=== PATIENT | female | born 1965 | race Caucasian/White ===

== ENCOUNTER 2016-04-10 21:26 | Emergency (ER) | payer BC ==
[2016-04-10 22:24] VITALS: BP 116/72
--- NOTE | 2016-04-10 23:50 | UC ---
Knee Pain HPI - HPI Summary HPI Summary: hit during [employer] practice, went down and right knee twisted. Pain over LCL. No swelling. Able to walk comfortably, but has a sense that knee might give out. She was putting away groceries tonight after injury, twisted, and knee "gave out". Prior knee sprain last year, thought it had fully healed - History of Current Complaint Chief Complaint: UCLowerExtremity Stated Complaint: RIGHT KNEE INJURY Time Seen by Provider: 04/10/16 22:33 Hx Obtained From: Patient Hx Last Menstrual Period: HAS A IUD, DOES NOT HAVE REG PERIODS Onset/Duration: Sudden Onset, Lasting Hours - 8 Severity Initially: Moderate Severity Currently: Mild Character: Dull, Aching, Stiffness Aggravating Factor(s): Movement, Weight Bearing, Stairs Associated Signs And Symptoms: Positive: Negative Able to Bear Weight: Yes Related History: Similar Episode/Dx as - sprain - Risk Factors Septic Arthritis Risk Factor: Negative Gout Risk Factor: Negative - Allergies/Home Medications Allergies/Adverse Reactions: Allergies Allergy/AdvReac Type Severity Reaction Status Date / Time No Known Allergies Allergy Verified 04/10/16 22:16 Home Medications: Home Medications Levonorgestrel (IUD) (NF) [Mirena (NF)] 20 mcg IU 04/10/16 [History] PMH/Surg Hx/FS Hx/Imm Hx Previously Healthy: Yes - Surgical History Surgical History: None - Family History Known Family History: Negative: Respiratory Disease - Social History Occupation: Employed Full-time Lives: With Family Alcohol Use: None Substance Use Type: None Smoking Status (MU): Never Smoked Tobacco Review of Systems Constitutional: Negative Skin: Negative Eyes: Negative ENT: Negative Respiratory: Negative Cardiovascular: Negative Gastrointestinal: Negative Genitourinary: Negative Motor: Negative Neurovascular: Negative Musculoskeletal: Arthralgia, Decreased ROM, Myalgia Neurological: Negative Psychological: Negative All Other Systems Reviewed And Are Negative: Yes Physical Exam Triage Information Reviewed: Yes Appearance: Well-Appearing, No Pain Distress, Well-Nourished, Thin Vital Signs: Initial Vital Signs Temp 98.7 F 04/10/16 22:16 Pulse 82 04/10/16 22:16 Resp 15 04/10/16 22:16 BP 116/72 04/10/16 22:16 Pulse Ox 98 01/30/17 22:16 Vital Signs Reviewed: Yes Eye Exam: Normal Neck exam: Normal Neck: Positive: Supple Respiratory Exam: Normal Cardiovascular Exam: Normal Musculoskeletal Exam: Other - right knee with mild tenderness over LCL. No swelling. No pain on cartilage grind. Ligaments stable to exam. No patellar ballottement or apprehension. Walking with minimal limp. Neurological Exam: Normal Psychological Exam: Normal Skin Exam: Normal Diagnostics - Laboratory Diagnostic Studies Completed/Ordered: Xray neg Knee Pain Course/Dx - Differential Dx/Diagnosis Differential Diagnosis/HQI/PQRI: Fracture (Closed), Internal Derangement Of Knee , Sprain Provider Diagnoses: knee LCL sprain Discharge - Discharge Plan Condition: Stable Disposition: HOME Prescriptions: Elastic Bandages & Supports [Knee Brace/Flexible Stays] 1 mis XX DAILY PRN #1 mis PRN Reason: knee pain Patient Education Materials: Knee Sprain (ED) Referrals: No Primary Care Phys,NOPCP [Primary Care Provider] - Additional Instructions: Wear knee brace for 4 weeks. Ease back into activities. If the knee hurts and swells, back off on activities. Ice for 48 hrs, then heat. Ask your system trainer for advice on strengthening exercises. Squats would not be a good idea for the next few weeks. Ibuprofen for discomfort/swelling Talk to Dr. Kamara (Orthopedic Surgeon) if you are not improving
--- NOTE | 2016-04-11 07:35 | RAD ---
HISTORY: Right knee pain, trauma, fall COMPARISONS: None VIEWS: 4, Frontal, lateral, axial, and oblique views of the right knee FINDINGS: BONE DENSITY: Normal. BONES: There is no displaced fracture. JOINTS: There is no arthropathy. There is no suprapatellar joint effusion or lipohemarthrosis. ALIGNMENT: There is no dislocation. SOFT TISSUES: Unremarkable. OTHER FINDINGS: None. IMPRESSION: NO ACUTE OSSEOUS INJURY. IF SYMPTOMS PERSIST, RECOMMEND REPEAT IMAGING.
== END 2016-04-10 23:52 | disposition home or self-care (01) ==
LOC: UCCORT 21:26
DX: S83.421A Sprain of lateral collateral ligament of right knee, initial encounter (principal); W03.XXXA Other fall on same level due to collision with another person, initial encounter; Y93.69 Activity, other involving other sports and athletics played as a team or group; Y92.9 Unspecified place or not applicable
CPT/HCPCS: 99202; G0463